=== PATIENT | male | born 1940 | race Caucasian/White ===

== ENCOUNTER → 2017-01-24 | Day surgery (SDC) | payer OTHER, MEDICARE ==
[2017-01-17 09:48] VITALS: Ht 170.2 cm; Wt 87.4 kg
--- NOTE | 2017-01-17 10:21 | PAT Medication Instructions ---
Service Date January 17, 2017. Current Home Medication List Aspirin (Aspirin Ec), 81 MG PO QAM Carbidopa-Levodopa (Sinemet Cr 25MG/100MG), 1 TAB PO TID Finasteride (Proscar), 5 MG PO QAM Fish Oil ([place]-3), 1 CAP PO QAM Gabapentin (Neurontin), 200 MG PO QID Ibuprofen (Motrin), 400 MG PO Q6H PRN for Pain Lysine Hcl (Lysine), 1,000 MG PO QAM Multivitamin (Multivitamin), 1 TAB PO QAM Omeprazole (Prilosec), 20 MG PO QPM Simvastatin (Zocor), 40 MG PO HS Tamsulosin HCl (Tamsulosin HCl), 1 CAP PO QAM Medication Instructions For Your Scheduled Surgery Aspirin (Aspirin Ec), 81 MG PO QAM (surgeon's office will call you with instructions) - Hold the following medications starting today 01/17/17 Fish Oil ([place]-3), 1 CAP PO QAM Lysine Hcl (Lysine), 1,000 MG PO QAM - Hold the following medications 7 days prior to surgery per surgeon instructions: Ibuprofen (Motrin), 400 MG PO Q6H PRN for Pain (can take Tylenol for pain) - Hold the following medications the morning of surgery: Multivitamin (Multivitamin), 1 TAB PO QAM - Take the following medications the morning of surgery with a sip of water: Tamsulosin HCl (Tamsulosin HCl), 1 CAP PO QAM Gabapentin (Neurontin), 200 MG PO QID Finasteride (Proscar), 5 MG PO QAM Carbidopa-Levodopa (Sinemet Cr 25MG/100MG), 1 TAB PO TID - Take the following medications as scheduled the night before surgery: Omeprazole (Prilosec), 20 MG PO QPM Simvastatin (Zocor), 40 MG PO HS Gabapentin (Neurontin), 200 MG PO QID Carbidopa-Levodopa (Sinemet Cr 25MG/100MG), 1 TAB PO TID If you have any questions please call us at [phone] or [phone] ( [place]) or [phone]
--- NOTE | 2017-01-17 11:01 | DIAGNOSTIC IMAGING REPORT ---
CHEST PREADMISSION(PA/LAT) CLINICAL HISTORY: Preoperative chest COMPARISON STUDY: 11/17/2015 FINDINGS: The cardiac and mediastinal contours are normal. There is no evidence of focal pulmonary consolidation. There is no evidence of failure. No pleural effusions are visualized.[ There are minor linear atelectatic changes the right lung base. IMPRESSION: No active disease in the chest. Electronically signed by: Yong Mcfarlane M.D. 01/17/2017 10:59 AM Dictated Date/Time: 01/17/2017 10:59 AM
[2017-01-17 11:51] LABS: BASO % 0.2 %; BASO ABS # 0.01 K/uL (0-0.2); COMPLETE YES; EOS % 1.1 %; HEMATOCRIT 43.1 % (42-52); IG% 0.2 %; LYMPH % 20.7 %; LYMPH ABS # 0.97 K/uL (1.2-3.4); MEAN CELL VOLUME 96.6 fL (80-100); MEAN CORPUSCULAR HEMOGLOBIN 34.1 pg (25-34); MEAN CORPUSCULAR HGB CONC 35.3 g/dl (32-36); MEAN PLATELET VOLUME 10.5 fL (7.4-10.4); MONO % 7.5 %; NEUT % 70.3 %; PLATELET COUNT 206 K/uL (130-400); RED BLOOD COUNT 4.46 M/uL (4.7-6.1); WHITE BLOOD COUNT 4.68 K/uL (4.8-10.8)
[2017-01-17 12:13] LABS: URINE APPEARANCE CLEAR (CLEAR); URINE BILIRUBIN NEG (NEG); URINE COLOR YELLOW; URINE NITRITE NEG (NEG); URINE PH 7.5 (4.5-7.5); URINE SPECIFIC GRAVITY 1.021 (1.000-1.030); UROBILINOGEN NEG (NEG)
[2017-01-17 12:41] LABS: MANUAL MICROSCOPIC REQUIRED? NO; REVIEW REQ? NO
[2017-01-17 13:12] LABS: CALCIUM 8.6 mg/dl (8.5-10.1); CREATININE 0.88 mg/dl (0.60-1.40)
[~2017-01-24] VITALS: Ht 170.2 cm; Wt 87.4 kg
[~2017-01-24] MED LIST: ASPI81TA28 PO; ATROPINE SULFATE 0.1 MG/ML 5ML SYR IV PRN; BELLADONNA/OPIUM SUPP 60 MG SUPP PR ONE; CARB25TA PO; CIPR-255 PO; CIPROFLOXACIN / D5W 400 MG IV SCH; DEXAMETHASONE SOD INJ 4 MG/ML VIAL ONE; EpHEDrine SULFATE INJ 50 MG/ML AMP IV PRN; FENTANYL CITRATE INJ 50 MCG/1 ML 2 ML VIAL IV PRN; FENTANYL CITRATE INJ 50 MCG/1 ML 2 ML VIAL ONE; FINA5TAB PO; FLM4 PO; FLUMAZENIL 0.1 MG/1 ML 10 ML VIAL IV PRN; GABA-112 PO; IBUP-1459 PO; KETAMINE HCL INJ 50 MG/ML 10 ML VIAL ONE; LABETALOL HCL IV 5 MG/ML 20ML IV PRN; LACTATED RINGER'S 1000ML 1,000 ML IV SCH; LIDOCAINE HCL 2% 2 ML VIAL (20MG/ML) ONE; LYSI100010 PO; MIDAZOLAM HCL 1 MG/ML 2ML VIAL ONE; MULT-506 PO; NALOXONE HCL 0.4 MG/1 ML VIAL/CARP IV PRN; OMEG10007 PO; ONDANSETRON INJ 2 MG/ML 2 ML VIAL IV PRN; ONDANSETRON INJ 2 MG/ML 2 ML VIAL ONE; OXYC-57 PO; OXYCODONE/ACETAMINOPHEN 5-325 TAB PO PRN; PHEN-775 PO; PHENAZOPYRIDINE HCL 200 MG TAB PO PRN; PRLSR20 PO; PROMETHAZINE HCL INJ 12.5 MG in SODIUM CHLORIDE 0.9% 50ML 50 ML IV PRN; PROPOFOL IV EMULSION 10 MG/ML 20 ML VIAL IV ONE; SIMV40TA2 PO
[2017-01-24 09:39] VITALS: BP 154/91; PULSE 77; TEMP 37; O2SAT 97
--- NOTE | 2017-01-24 11:05 | History & Physical Bridge Note ---
H&P Re-Evaluation Bridge Note: I have examined the patient, reviewed the History & Physical and in the interval since the performance of the History & Physical I have noted the following changes of clinical significance: No changes noted
--- NOTE | 2017-01-24 13:02 | Discharge Instructions ---
Discharge Instructions Date of Service January 24, 2017. Admission Reason for Admission: Benign Prostatic Hyperplasia Discharge Discharge Diagnosis / Problem: BPH s/p GLTURP Discharge Goals Goal(s): Improve function, Improve disease control, Therapeutic intervention Activity Recommendations Activity Limitations: per Instructions/Follow-up section Lifting Limitations: no more than 25 pounds, gradually increase as tolerated Exercise/Sports Limitations: rest today (light activity x 5 days) May Resume Sexual Activity: after two weeks Shower/Bathe: may shower/bathe in 3 days Driving or Machine Use: resume 3 days after discharge Catheter to gravity drainage as instructed . Instructions / Follow-Up Instructions / Follow-Up In office as scheduled for removal of esteves Discharge Diet Recommended Diet: Regular Diet (good fluid intake) Procedures Procedures Performed: Greenlight Transuretheral Resection of the Prostate Pending Studies Studies pending at discharge: no Medical Emergencies . Who to Call and When: Medical Emergencies: If at any time you feel your situation is an emergency, please call 911 immediately. . Non-Emergent Contact Non-Emergency issues call your: Urologist Call Non-Emergent contact if: you have a fever, temperature is above 101, your pain is not controlled, your pain is worsening, your pain is unusual for you, your pain is concerning you, wound has increased drainage, you have any medication questions . . "Provider Documentation" section prepared by Moses Sellers. . VTE Core Measure Inpt VTE Proph given/why not?: SCD's [place] Drug Monitoring Program Search Results: patient reviewed within database, no issues identified
--- NOTE | 2017-01-24 13:37 | Anesthesiology Progress Note ---
Anesthesia Post Op Note Date & Time January 24, 2017 at 13:37 Vital Signs Pain Intensity: 0 Vital Signs Past 12 Hours Date Time Temp Pulse Resp B/P Pulse Ox O2 Delivery O2 Flow Rate FiO2 01/24/17 13:26 154/95 01/24/17 13:25 94 15 01/24/17 13:25 93 15 94 01/24/17 13:21 149/90 01/24/17 13:20 94 15 01/24/17 13:20 94 15 95 01/24/17 13:16 151/86 01/24/17 13:15 96 15 95 01/24/17 13:15 96 15 01/24/17 13:14 94 16 01/24/17 13:14 94 16 01/24/17 13:14 94 16 95 01/24/17 13:14 94 16 95 01/24/17 13:11 161/94 01/24/17 13:11 161/94 01/24/17 13:09 95 13 99 01/24/17 13:09 95 13 01/24/17 13:09 95 13 99 01/24/17 13:09 95 13 01/24/17 13:06 159/95 01/24/17 13:06 159/95 01/24/17 13:04 94 17 99 01/24/17 13:04 94 17 01/24/17 13:04 94 17 99 01/24/17 13:04 94 17 01/24/17 13:01 154/85 01/24/17 13:01 154/85 01/24/17 13:00 36 90 13 148/87 99 Mask 8 01/24/17 12:59 87 16 148/87 99 01/24/17 12:59 88 16 01/24/17 12:59 87 16 148/87 99 01/24/17 12:59 88 16 01/24/17 09:39 37 77 18 154/91 97 Room Air Notes Mental Status: alert / awake / arousable, participated in evaluation Pt Amnestic to Procedure: Yes Nausea / Vomiting: adequately controlled Pain: adequately controlled Airway Patency, RR, SpO2: stable & adequate BP & HR: stable & adequate Hydration State: stable & adequate Anesthetic Complications: no major complications apparent
[2017-01-24 13:50] VITALS: BP 109/93; PULSE 92; TEMP 36.5; O2SAT 93
--- NOTE | 2017-01-24 14:17 | OPERATIVE REPORT ---
DATE OF OPERATION: 01/24/2017 PREOPERATIVE DIAGNOSIS: Refractory benign prostatic hypertrophy. POSTOPERATIVE DIAGNOSIS: Same. PROCEDURE: GreenLight vaporization of the prostate gland. SURGEON: Dr. Moses Sellers. LEAD CARGOMAN: None. ANESTHESIA: General anesthesia with laryngeal mask. COMPLICATIONS: None. ESTIMATED BLOOD LOSS: Minimal. FINDINGS: Open prostatic fossa after completion of vaporization using 222,000 joules of energy, excellent hemostasis and an unobstructed prostate. DRAINS LEFT IN PLACE: Include a 24-[place] Aparicio catheter to gravity drainage with 10 mL of sterile water in the balloon. COMPLICATIONS: None. BRIEF HISTORY: Mr. Oliveira is a pleasant 76-year-old male who I have seen as an outpatient for history of bothersome voiding symptoms. He has been on maximum medical therapy with Flomax and Proscar, but his symptoms continue. Office cystoscopy has demonstrated significant BPH with obstructive lateral lobes. Please see H\T\P for further details. After discussion of risks and benefits of various forms of management, he has decided upon GreenLight vaporization of his prostate to manage his disease. SCDs used for DVT prophylaxis and intravenous ciprofloxacin for IV coverage. PROCEDURE: The patient was properly identified and brought to the operative suite after identification of appropriate consent on the chart, general anesthesia with laryngeal mask was initiated. The patient was prepped and draped in standard fashion for this procedure. logistics lead-out procedure was followed. GreenLight laser resectoscope was introduced into the bladder under direct visualization using a visual obturator. Bladder was surveyed in its entirety demonstrating no intravesical lesions, papillary masses, calculi or significant abnormalities except for some trabeculation of the bladder. Ureteral orifices were noted to be in good anatomic location and well removed from the bladder neck. These were effluxing clear yellow urine bilaterally. Using a side fire GreenLight laser fiber, circumferential vaporization of the patient's obstructive prostate tissue was performed. Relaxing incisions were made at the 5 and 7 o'clock position and median lobe was also vaporized until unobstructed as well. Excellent hemostasis was present throughout the course of the case and after approximately 222,000 joules of energy were used, the prostate was noted to be well unobstructed visually with excellent hemostasis and no significant residual tissue. Ureteral orifices and the bladder structures were noted to be free of injury throughout the case. After this was complete, bladder was partially distended and resectoscope was removed. A 24-[place] Aparicio catheter was placed over a catheter guide with return of clear irrigant. Ten mL of sterile water were placed in the balloon. Catheter was placed to gravity drainage. Belladonna and opium suppository was provided for additional postoperative analgesia. Anesthesia was reversed and the patient was transferred to recovery room in stable condition with catheter to gravity drainage. FOLLOW-UP CARE: The patient will be discharged home with a prescription for ciprofloxacin, Percocet, and Pyridium. Outpatient appointment for his trial of void and postoperative visits are confirmed. The patient is instructed to contact our service should he note any fevers, chills, nausea, vomiting or other significant difficulties in the postoperative period. I attest to the content of the Intraoperative Record and any orders documented therein. Any exceptio ns are noted below.
[2017-01-24 14:20] VITALS: BP 144/77; PULSE 94; O2SAT 94
[2017-01-24 14:50] VITALS: BP 144/77; PULSE 94; TEMP 36.5; O2SAT 94
== END | disposition home or self-care (01) ==
LOC: C.ACU 09:08
PROVIDERS: ATTEND Urology
DX: N40.1 Benign prostatic hyperplasia with lower urinary tract symptoms (principal); N13.8 Other obstructive and reflux uropathy; R35.0 Frequency of micturition; E78.00 Pure hypercholesterolemia, unspecified; Z85.46 Personal history of malignant neoplasm of prostate; Z79.899 Other long term (current) drug therapy